=== PATIENT | female | born 1975 | race African-American/Black ===

== ENCOUNTER 2019-01-28 12:58 | Emergency (ER) | payer SELFPAY ==
[~2019-01-28] VITALS: Ht 170.2 cm; Wt 77.0 kg
[2019-01-28 13:05] VITALS: BP 198/90
[2019-01-28] MEDS ORDERED: ASPIRIN (13:05)
== END 2019-01-28 14:21 | disposition left against medical advice (07) ==
LOC: ER 13:56
DX: R42 Dizziness and giddiness (principal); Z53.21 Procedure and treatment not carried out due to patient leaving prior to being seen by health care provider